=== PATIENT | male | born 1965 | race Caucasian/White ===

== ENCOUNTER 2022-01-28 12:10 | Day surgery (SDC) | payer BC, SELFPAY ==
[2022-01-28] VITALS (9 sets, daily range): BP systolic 94–198; BP diastolic 39–123; PULSE 64–114; RESP 14–18; TEMP 36.6–36.9; O2SAT 95–98; BMI 24.9
--- NOTE | 2022-01-28 12:38 | XR_ITS ---
PROCEDURE INFORMATION: Exam: XR Chest Exam date and time: 01/28/2022 12:42 PM Age: 56 years old Clinical indication: Injury or trauma; Other: Food stuck; Patient HX: Patient was eating chicken and feels that it is stuck. Difficulty swallowing. Left sided chest pain. ; Additional info: Fb R/O TECHNIQUE: Imaging protocol: Radiologic exam of the chest. Views: 2 views. COMPARISON: No relevant prior studies available. FINDINGS: Lungs: Lungs are well aerated without a focal area of consolidation. Pleural spaces: Unremarkable. No pleural effusion. No pneumothorax. Heart/Mediastinum: Unremarkable. No cardiomegaly. Bones/joints: Unremarkable. IMPRESSION: Lungs are well aerated without a focal area of consolidation.
--- NOTE | 2022-01-28 12:55 | PC.NURSE ---
ED MD AT BEDSIDE
--- NOTE | 2022-01-28 13:05 | HMH.EDGENADL ---
Discharge Plan Disposition Patient Disposition: Still a Patient Chief Complaint: Skin/Abscess/Foreign Body Referrals Follow up/Referrals: Errol Carreno MD [Primary Care Provider] - See instructions Clinical Impressions Clinical Impression: Food impaction of esophagus, Hypertension, Acute dehydration Discharge ED Provider: Giles Bunch General Adult HPI General Chief complaint: Skin/Abscess/Foreign Body Stated complaint: food stuck in throat Time Seen by Provider: 01/28/22 12:49 Mode of Arrival: Wheelchair Source of Information: Patient and Spouse Limitations: No Limitations Description of Symptoms (Recalled from ER Triage Doc. by RN): c/o a piece of chicken stuff in his throat/chest area for 3 days. Unable to drink water, eat food or take his medicine which includes his bp meds and he feels like he is having the effects of high blood pressure and becoming dizzy prior to arrival. History of Present Illness HPI narrative: States he was eating chicken on , 2 days ago and it stuck in his esophagus. Since then unable to swallow anything including liquids, food, saliva, medications. He is on blood pressure medication and has not been able to take it, feels like his blood pressure is going high. He has dry mouth and decreased urination. States he had roast beef stuck in his esophagus several years ago and went to [facility] and had to be transferred to [facility] for treatment. Related Data Allergies Allergy/AdvReac Type Severity Reaction Status Date / Time STRAWBERRIES Allergy Intermediate I-RASH Uncoded 01/30/17 14:33 [facility] Disclaimer: The information contained in this section may have been updated after the patient was seen, as this information can be updated by other users. Social History Smoking Status: Never smoker ROS Obtained: Yes Systems reviewed as appropriate & no additional complaints except as documented Constitutional Constitutional: Denies fever(s) Respiratory Respiratory: Denies shortness of breath Gastrointestinal Gastrointestingal: Reports as per HPI Physical Exam General General appearance: alert and in no apparent distress Eye Eye exam: Present normal appearance Neck Neck exam: Present normal inspection and trachea midline Chest Chest inspection: Present normal inspection and symmetric chest wall rise Respiratory Respiratory exam: Present normal lung sounds bilaterally; Absent respiratory distress Cardiovascular Cardiovascular exam: Present regular rate Abdominal Exam Abdominal exam: Present soft; Absent distention or tenderness Neurological Exam Neurological exam: Present alert and oriented X3 Psychiatric Psychiatric exam: Present normal affect and normal mood Skin Skin exam: Present warm and dry Medical Decision Making Jimmy Inquiry Pt receiving controlled substance: No Vital Signs: 01/28/22 12:11 Temperature 98.5 F Temperature Source Oral Pulse Rate [Left Radial] 114 H Respiratory Rate 18 Blood Pressure [Right Arm] 198/123 H Blood Pressure Mean [Right Arm] 148 Blood Pressure Source [Right Arm] Automatic Cuff Blood Pressure Position [Right Arm] Sitting 02 Sat by Pulse Oximetry 97 Oxygen Delivery Method Room Air Orders (Tests/Meds): ED MEDICATIONS Generic Name Dose Route Start Last Admin Trade Name Freq PRN Reason Stop Dose Admin Enalaprilat 1.25 mg 01/28/22 13:04 01/28/22 13:08 Enalaprilat 2.5mg/2ml Vial IV 01/28/22 13:05 1.25 mg ONCE ONE Administration Sodium Chloride 1,000 mls @ 999 mls/hr 01/28/22 13:00 01/28/22 13:14 Sod Chlor 0.9% 1000ml Bag IV 01/28/22 14:00 999 mls/hr .Q1H1M [place] Administration Ondansetron HCl 4 mg 01/28/22 13:14 01/28/22 13:15 Ondansetron 4mg/2ml Vial IV 01/28/22 13:15 4 mg ONCE ONE Administration Sodium Chloride 10 ml 01/28/22 12:59 Sodium Chloride 0.9% 10ml Flush Syringe IV 02/27/22 12:58 NEEDED PRN Maintain IV Site ORDERS
--- NOTE | 2022-01-28 13:06 | PC.NURSE ---
[facility]
[2022-01-28 13:12] LABS: Basophils # 0.2 K/mm3 (0-0.2); Basophils % 1.3 % (0.1-2.0); Eosinophils # 0.3 K/mm3 (0.0-0.4); Eosinophils % 1.9 % (0.1-12.0); Hematocrit 54.4 % (42.0-52.0); Lymphocytes # 1.9 K/mm3 (0.7-4.5); Lymphocytes % 13.5 % (10-50); Mean Corpuscular HGB Conc 33.2 g/dL (31.8-35.4); Mean Corpuscular Hemoglobin 32.6 pg (27.0-31.2); Mean Corpuscular Volume 98.2 fl (80-94); Mean Platelet Volume 8.4 fl (7.4-10.4); Monocytes # 0.8 K/mm3 (0.1-1.0); Monocytes % 5.4 % (1.7-9.3); Platelet Count 387 K/mm3 (142-424); Red Blood Count 5.54 M/mm3 (4.60-6.20); White Blood Count 14.2 K/mm3 (4.8-10.8)
--- NOTE | 2022-01-28 13:13 | PC.NURSE ---
DR. FIGUEROA PAGED AT THIS TIME
--- NOTE | 2022-01-28 13:14 | PC.NURSE ---
DR. HUTCHINS SPEAKING WITH DR. FIGUEROA
--- NOTE | 2022-01-28 13:16 | PC.NURSE ---
will come to see the pt and take him to surgery per
--- NOTE | 2022-01-28 13:16 | PC.NURSE ---
PAGEANT DIRECTOR NOTIFIED TO CALL OR CRIB TENDER TEAM PER DR. FIGUEROA
[2022-01-28 13:23] LABS: Alanine Aminotransferase 33 U/L (12-78); Albumin Level 5.2 g/dl (3.5-5.0); Albumin/Globulin Ratio 1.5 (1.1-1.8); Alkaline Phosphatase 94 U/L (38-126); Anion Gap 18.4 mEq/L (5-15); Aspartate Amino Transferase 30 U/L (17-59); Bilirubin,Total 1.1 mg/dl (0.2-1.3); Blood Urea Nitrogen 32 mg/dl (9-20); Calcium 10.1 mg/dl (8.4-10.2); Carbon Dioxide 27 mmol/L (22.0-30.0); Chloride 107 mmol/L (98-107); Creatinine Clearance Estimated 87 mL/min (50-200); Estimated Glomerular Filt Rate 69 ml/min (>60); GFR (African American) 83 ML/MIN (>60); Globulin 3.4 g/dL (1.3-3.2); Glucose 120 mg/dl (74-100); Potassium 4.4 mmoL/L (3.5-5.1); Sodium 148 mmol/L (136-145); Total Protein,Serum 8.6 g/dl (6.3-8.2)
--- NOTE | 2022-01-28 13:26 | PC.NURSE ---
1317 - notified by ER to call in OR team per Dr Nielson, caterpillar tractor operator notified 1318 - Deep returned call 1319 - Milo returned call
--- NOTE | 2022-01-28 13:41 | EXP.ANES.CKL ---
[facility] Disclaimer: The information contained in this section may have been updated after the patient was seen, as this information can be updated by other users. Social History Smoking Status: Never smoker alcohol intake: never substance use type: denies use current occupational status: employed Travel in the last 8 weeks: None [facility] Anesthesia Checklist Patient Identification Patient Identification: Arm Band and Verbal (Name & ) Structural Data Admitted From: Emergency Dept Planned Operative Procedure/s: EGD Consent for Planned Operative Procedure(s) Verified: Yes NPO Status Verified Time NPO: 00:00 Airway Assessment C-Spine Mobility Assessed: Yes TMJ Mobility Assessed: Yes Dentition: Poor Dentition Neurological Assessment Level of Consciousness: Awake Hx Seizures: No Numbness or tingling in extremities: No Anesthesia Plan Anesthesia Risk discussed: Yes Anesthesia Plan: Verified ASA Class: II Anesthesia Type: MAC
--- NOTE | 2022-01-28 14:57 | HMH.SCOPE ---
Procedure: Date: 01/28/22 Patient Date of :: 1965 Procedure Performed:: Esophagogastroduodenoscopy with foreign body removal and biopsy Indications:: Esophageal foreign body Performing Provider:: Yosef Nielson MD Referring Provider:: Emergency department Sedation:: Monitored anesthesia care/general anesthesia Procedure:: After informed consent was obtained the patient was taken to the endoscopy suite. Sedation ensued after the patient was transferred to the left lateral decubitus position. Pulse, blood pressure, and oxygen saturation were monitored throughout the procedure. The endoscope was advanced beyond the duodenal bulb. Retroflexion within the gastric lumen was accomplished. The gastroscope was carefully removed and the patient was transferred to recovery in stable condition. Please see findings and specimens below for detail. Findings:: Patchy esophagitis Shallow esophageal ulcerations Focal esophageal candidiasis Large food bolus impacted at distal esophagus (retrieved via retrograde manner with net) Patchy gastritis Shallow mid/distal gastric body ulcers Small shallow duodenal bulb ulcers Specimens:: Antral biopsy Recommendations:: Proton pump inhibition ordered Diflucan ordered Close outpatient follow-up Clear liquid diet for 24 hours; followed by full liquid diet for 24 hours; followed by soft diet Complications:: No immediate Estimated blood obtained (mL): 1
== END 2022-01-28 15:45 | disposition home or self-care (01) ==
LOC: ER 13:18 → SDC 13:55
PROVIDERS: Emergency Provider Emergency Medicine; PCP Pediatrics; Visit Provider Surgery
PROC: 0DJ08ZZ Inspection of Upper Intestinal Tract, Via Natural or Artificial Opening Endoscopic (ICD-10-PCS; CPT 43235; principal; 2022-01-28 14:00)
DX: T18.128A Food in esophagus causing other injury, initial encounter (principal); K29.70 Gastritis, unspecified, without bleeding; B37.81 Candidal esophagitis; B96.81 Helicobacter pylori [H. pylori] as the cause of diseases classified elsewhere
CPT/HCPCS: 43247; 43239; 71046; 80053; 85025; 88305; 96365; 96375; 99284; J2405; J2704

== ENCOUNTER 2023-12-15 10:45 | Emergency (ER) | payer SELFPAY ==
[2023-12-15 11:41] VITALS: BP 171/102; PULSE 89; RESP 20; TEMP 36.6; O2SAT 93; BMI 24.7
[2023-12-15 11:48] VITALS: BP 176/100; O2SAT 96
[2023-12-15 12:00] LABS: UTC Influenza A Antigen Negative (Negative); UTC Influenza B Antigen Negative (Negative)
--- NOTE | 2023-12-15 12:24 | EXP.UTC ---
Discharge Plan Disposition Patient Disposition: Home, Self-Care Condition: Good Prescriptions Prescriptions: New amlodipine 10 mg tablet 10 mg PO DAILY Qty: 30 0RF amoxicillin 500 mg tablet 500 mg PO TID 10 Days Qty: 30 0RF Referrals Follow up/Referrals: Errol Carreno MD [Primary Care Provider] - See instructions Activity Restrictions/Add. Instructions Additional Instructions/Restrictions: Take medication as prescribed. Increase fluids and rest. Follow up with PCP for BP care. Clinical Impressions Clinical Impression: Upper respiratory tract infection Qualifiers: URI type: unspecified URI Qualified Code(s): J06.9 - Acute upper respiratory infection, unspecified Stand Alone Forms Stand Alone Forms: Work/School Release Instructions Patient Instructions: DI for Viral Upper Respiratory Infection -- Adult, Acute Bronchitis Print Language Print Language: Kyrgyz Discharge ED Provider: Palua Arreola [facility] [place] HPI General Stated complaint: headache, chest congestion, throat tickling Mode of Arrival: Ambulatory Source of Information: Patient Time Seen by Provider: 12/15/23 12:23 Description of Symptoms (Recalled from Triage Doc. by RN): PHELPS, STOMACH ACHE, NAUSEA HEENT Symptoms (Recalled from RN notes): Yes Resp Symptoms (Recalled from RN notes): No Skin Symptoms (Recalled from RN notes): No MS Symptoms (Recalled from RN notes): No Functional Status (Recalled from RN notes): WNL History of Present Illness Provider Complaint: Pt reports that he worked on some busted pipes under his house earlier in the week and has had sinus pain, yellow sinus drainage, cough, wheezing, n/v (yesterday but not today). He states that he has been using his inhaler. Pt states that he is supposed to be on BP meds but has not taken since May as he has not had any insurance. Related Data Previous Rx's ?Medication ?Instructions ?Recorded amlodipine 10 mg tablet 10 mg PO DAILY #30 tabs 12/15/23 amoxicillin 500 mg tablet 500 mg PO TID 10 days #30 tabs 12/15/23 Allergies Allergy/AdvReac Type Severity Reaction Status Date / Time STRAWBERRIES Allergy Intermediate I-RASH Uncoded 02/08/22 08:58 Worker's Comp Is this a Worker's Comp case?: No [facility] Disclaimer: The information contained in this section may have been updated after the patient was seen, as this information can be updated by other users. Surgical History (Updated 02/08/22 @ 08:59 by IMELDA Leal) History of esophagogastroduodenoscopy (EGD) Social History Smoking Status: Never smoker alcohol intake: never substance use type: denies use current occupational status: employed Travel in the last 8 weeks: None ROS Obtained: Yes All systems reviewed & no additional complaints except as documented Constitutional Constitutional: Reports system reviewed and no additional complaints, except as documented, Reports body ache, Reports chills and Reports headache(s) Eyes Eyes: Reports system reviewed and no additional complaints, except as documented ENT Ears, Nose, Mouth, and Throat: Reports system reviewed and no additional complaints, except as documented, Reports headache(s), Reports nasal congestion, Reports nasal discharge, Reports sinus pain and Reports sinus pressure Cardiovascular Cardiovascular: Reports system reviewed and no additional complaints, except as documented Respiratory Respiratory: Reports system reviewed and no additional complaints, except as documented, Reports non-productive cough and Reports wheezing Gastrointestinal Gastrointestingal: Reports system reviewed and no additional complaints, except as documented Genitourinary Male Genitourinary: Reports system reviewed and no additional complaints, except as documented Musculoskeletal Musculoskeletal: Reports system reviewed and no additional complaints, except as documented Integumentary/Breasts Skin/Breast: Reports system reviewed and no additional complaints, except as documented Neurologic Neurologic: Reports system reviewed and no additional complaints, except as documented and Reports headache(s) Endocrine Endocrine: Reports system reviewed and no additional complaints, except as documented Hematologic/Lymphatic Henatologic/Lymphatic: Reports system reviewed and no additional complaints, except as documented Allergic/Immunologic Allergic/Immunologic: Reports system reviewed and no additional complaints, except as documented and Reports wheezing Physical Exam General General appearance: alert and in no apparent distress Head Head exam: atraumatic and normocephalic Eye Eye exam: Present normal appearance ENT ENT exam: Present mucous membranes moist Expanded ENT Exam External ear exam: Present normal external inspection Nose exam: Present sinus tenderness Nasal speculum exam: Bilateral: purulent discharge Mouth exam: Present normal external inspection Teeth exam: Present dental caries Throat exam: Present normal inspection Neck Neck exam: Present normal inspection Chest Chest inspection: Present normal inspection and symmetric chest wall rise Respiratory Respiratory exam: Present other (course sounds throughout) Cardiovascular Cardiovascular exam: Present regular rate and normal rhythm Abdominal Exam Abdominal exam: Present soft and normal bowel sounds Extremities Exam Extremities exam: Present normal inspection Back Exam Back exam: Present normal inspection Neurological Exam Neurological exam: Present alert and oriented X3 Psychiatric Psychiatric exam: Present normal affect and normal mood Skin Skin exam: Present warm, dry and intact Lymphatic Lymphatic Findings: no adenopathy Medical Decision Making Medical Records Screening: Per USPSTF and CDC recommendations, given the prevalence of disease in our region, it is our hospital?s policy to screen for HIV and viral Hepatitis for all patients aged 18 and over and those with ongoing risk factors. Jimmy Inquiry Pt receiving controlled substance: No Jimmy was queried for this patient: No Vital Signs: 12/15/23 11:41 12/15/23 11:48 Temperature 97.9 F Temperature Source Oral Pulse Rate [Left Radial] 89 Respiratory Rate 20 Blood Pressure [Left Arm] 171/102 H 176/100 H Blood Pressure Mean [Left Arm] 125 125 02 Sat by Pulse Oximetry 93 L 96 Lab Data Lab results reviewed: Yes I reviewed the patient's lab results. Lab Results 12/15/23 11:45: Influenza Type A Ag Negative, Influenza Type B Ag Negative
[2023-12-15 12:37] VITALS: BP 176/100; PULSE 89; RESP 20; TEMP 36.6
== END 2023-12-15 12:41 | disposition home or self-care (01) ==
PROVIDERS: Emergency Provider Nurse Practitioner Family; PCP Pediatrics
DX: J06.9 Acute upper respiratory infection, unspecified (principal)
CPT/HCPCS: 87804; 99213; G0381

== ENCOUNTER 2024-04-24 13:40 | Outpatient (CLI) | payer MEDICAID, SELFPAY ==
[2024-04-24 11:15] LABS: Basophils # 0.1 K/mm3 (0-0.2); Basophils % 0.9 % (0.1-2.0); Eosinophils # 0.2 K/mm3 (0.0-0.4); Eosinophils % 1.8 % (0.1-12.0); Hematocrit 42.7 % (42.0-52.0); Hemoglobin 14.9 g/dL (14.1-18.0); Lymphocytes # 2.2 K/mm3 (0.7-4.5); Lymphocytes % 24.9 % (10-50); Mean Corpuscular HGB Conc 34.9 g/dL (31.8-35.4); Mean Corpuscular Hemoglobin 32.3 pg (27.0-31.2); Mean Corpuscular Volume 92.4 fl (80-94); Monocytes # 0.8 K/mm3 (0.1-1.0); Monocytes % 8.3 % (1.7-9.3); Neutrophils # 5.6 K/mm3 (1.8-7.8); Neutrophils % 62.4 % (37.0-80.0); Platelet Count 345 K/mm3 (142-424); Red Blood Count 4.62 M/mm3 (4.60-6.20); Red Cell Distribution Width 12.2 % (11.5-17.5)
[2024-04-24 11:42] LABS: Hemoglobin A1C 5.3 % (4.0-6.0)
[2024-04-24 11:46] LABS: Alanine Aminotransferase 35 U/L (12-78); Albumin Level 4.8 g/dl (3.5-5.0); Albumin/Globulin Ratio 1.9 (1.1-1.8); Alkaline Phosphatase 61 U/L (38-126); Anion Gap 11.6 mEq/L (5-15); Aspartate Amino Transferase 27 U/L (17-59); Bilirubin,Total 0.4 mg/dl (0.2-1.3); Blood Urea Nitrogen 12 mg/dl (9-20); Calcium 9.6 mg/dl (8.4-10.2); Carbon Dioxide 24 mmol/L (22.0-30.0); Chloride 106 mmol/L (98-107); Cholesterol 248 mg/dl (140-200); Estimated Glomerular Filt Rate 115 ml/min (>60); GFR (African American) 140 ML/MIN (>60); Globulin 2.5 g/dL (1.3-3.2); Glucose 107 mg/dl (74-100); HDL Cholesterol 50 mg/dl (40-60); Potassium 4.6 mmoL/L (3.5-5.1); Sodium 137 mmol/L (136-145); Total Protein,Serum 7.3 g/dl (6.3-8.2); Triglycerides 272 mg/dl (30-150); Uric Acid 7.3 mg/dl (3.5-8.5); VLDL Cholesterol 54 mg/dL (0-40)
[2024-04-24 11:57] LABS: Direct LDL Cholesterol 132.52 mg/dL (100-129)
== END 2024-04-24 23:59 | disposition home or self-care (01) ==
LOC: LAB.DROPOF 13:40
PROVIDERS: PCP Internal Medicine; Visit Provider Internal Medicine
DX: Z00.00 Encounter for general adult medical examination without abnormal findings (principal); M10.9 Gout, unspecified; Z13.1 Encounter for screening for diabetes mellitus
CPT/HCPCS: 80053; 80061; 83036; 84550; 85025

== ENCOUNTER 2024-05-28 15:16 | Outpatient (CLI) | payer MEDICAID, SELFPAY ==
--- NOTE | 2024-05-28 15:19 | XR_ITS ---
FINAL REPORT CLINICAL HISTORY: shoulder injury FINDINGS: RIGHT SHOULDER Three views demonstrate no acute fracture or dislocation. There is mild degenerative joint disease. The visualized joint spaces are normally aligned. The soft tissues are unremarkable. IMPRESSION: No acute process. Reviewed, Interpreted and Dictated by Lauren Reid MD Transcribed by Nickie Byers Authenticated and [facility]
== END 2024-05-28 23:59 | disposition home or self-care (01) ==
LOC: RAD 15:18
PROVIDERS: PCP Internal Medicine; Visit Provider Internal Medicine
DX: M25.511 Pain in right shoulder (principal); S46.001A Unspecified injury of muscle(s) and tendon(s) of the rotator cuff of right shoulder, initial encounter
CPT/HCPCS: 73030

== ENCOUNTER 2024-06-11 15:35 | Outpatient (CLI) | payer MEDICAID, SELFPAY ==
--- NOTE | 2024-06-11 16:00 | MR_ITS ---
PROCEDURE INFORMATION: Exam: MR Right Upper Extremity Joint Without Contrast; Shoulder Exam date and time: 06/11/2024 4:16 PM Age: 58 years old Clinical indication: Pain; Shoulder; Right; Additional info: Anterior shoulder pain, nki TECHNIQUE: Imaging protocol: Magnetic resonance imaging of the right upper extremity without contrast. Exam focused on the shoulder. COMPARISON: CR XR SHOULDER RT MIN 2V 05/28/2024 3:21 PM FINDINGS: Bones/joints: No bone abnormalities. Articular cartilage appears somewhat thinned in the glenohumeral joint. A small glenohumeral joint effusion is present. Subchondral marrow edema-like signal is seen in the lateral humeral head. Glenoid labrum: Unremarkable. No evidence of tear. Bursae: Fluid is seen in the subacromial and subdeltoid bursae consistent with bursitis. Supraspinatus tendon: There is abnormal increased STIR signal present in the distal supraspinatus tendon at its attachment upon the lateral right humeral head. This is indicative of tendinosis. No definite full-thickness tear of the supraspinatus tendon. Infraspinatus tendon: Unremarkable. No evidence of tear. Subscapularis tendon: Unremarkable. No evidence of tear. Teres minor tendon: Unremarkable. No evidence of tear. Tendon of biceps brachii: The long head of the biceps tendon is normal. Glenohumeral ligaments: Unremarkable. Soft tissues: Unremarkable. IMPRESSION: 1. There is abnormal increased STIR signal present in the distal right supraspinatus tendon at its attachment upon the lateral right humeral head. This is indicative of tendinosis. No definite full-thickness tear of the supraspinatus tendon. Subchondral marrow edema-like signal is seen in the lateral humeral head, subadjacent to the attachment of the supraspinatus. 2. Fluid is seen in the subacromial and subdeltoid bursae consistent with bursitis. 3. 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 A small glenohumeral joint effusion is present.
== END 2024-06-11 23:59 | disposition home or self-care (01) ==
LOC: RAD 15:35
PROVIDERS: PCP Internal Medicine; Visit Provider Internal Medicine
DX: M25.511 Pain in right shoulder (principal); S46.001A Unspecified injury of muscle(s) and tendon(s) of the rotator cuff of right shoulder, initial encounter
CPT/HCPCS: 73221

== ENCOUNTER 2024-10-27 09:34 | Outpatient (CLI) | payer MEDICAID, SELFPAY ==
[2024-10-27 10:40] VITALS: PULSE 109; PULSE 117
[2024-10-27] MEDS: ALBUTEROL 0.083% 2.5 MG/3 ML NEB IH (10:40)
== END 2024-10-27 23:59 | disposition home or self-care (01) ==
LOC: RT 09:35
PROVIDERS: PCP Internal Medicine; Visit Provider Internal Medicine Pulmonary Disease
DX: J44.9 Chronic obstructive pulmonary disease, unspecified (principal); R94.2 Abnormal results of pulmonary function studies
CPT/HCPCS: 94060; 94618; 94640; 94726; 94729

== ENCOUNTER 2024-11-12 14:34 | Outpatient (CLI) | payer MEDICAID, SELFPAY ==
[2024-11-12 16:24] LABS: C-Reactive Protein 12.6 mg/L (0-4)
== END 2024-11-12 23:59 | disposition home or self-care (01) ==
LOC: LAB 14:35
PROVIDERS: PCP Internal Medicine; Visit Provider Internal Medicine Pulmonary Disease
DX: J30.9 Allergic rhinitis, unspecified (principal); R06.09 Other forms of dyspnea
CPT/HCPCS: 36415; 82785; 86003; 86140